=== PATIENT | male | born 1955 | race Caucasian/White ===

== ENCOUNTER 2020-01-13 08:43 | Outpatient (CLI) | payer MEDICARE, OTHER ==
--- NOTE | 2020-01-13 14:19 | CARDIAC PROCEDURE NOTE ---
DATE OF SERVICE: 01/13/2020 Physician: Tina Holguin MD, [facility] INDICATION: Dyspnea, chest pain. CARDIAC RISK FACTORS: Ex-smoker, hypertension. DESCRIPTION OF PROCEDURE: After signing informed consent, the patient underwent a Diaz-protocol treadmill stress test with nuclear myocardial perfusion imaging. RESTING HEART RATE: 60. PEAK HEART RATE: 124 (80% predicted maximum heart rate for age). RESTING BLOOD PRESSURE: 162/100. PEAK BLOOD PRESSURE: 204/118. The patient exercised for approximately 1.5 min, then the treadmill and EKG had lead errors and exercise was stopped, then was restarted after a rest period. The patient then exercised for 4 minutes on a manual protocol. He achieved a peak heart rate of 124 (80% PMHR) and 4.6 METS. The patient had resting chest pain, which he rated 6/10. This increased minimally, up to 7/10 with exercise. The patient developed shortness of breath quickly, after approximately 1 minute on the treadmill. Exercise was completed due to severe shortness of breath and he rated his perceived exertion at 18/20 on the Darrell scale. Oxygen saturation was 96% on room air at rest, which dropped to 88% on room air with exercise. In recovery, lung pozo were auscultated and there was wheezing in all lung pozo RESTING EKG: Normal sinus rhythm, left anterior fascicular block, poor R-wave progression, left atrial and right atrial enlargement. EKG AT PEAK: No new ST segment or T-wave changes developed to suggest ischemia at this level of stress achieved. SUMMARY: 1. Abnormal resting electrocardiogram. 2. Uncontrolled blood pressure at rest and with exercise (despite taking his HCTZ medication). 3. Atypical chest pain for angina; it was present at rest and minimally worsened with exercise. 4. Oxygen desaturation occurs with exercise on room air. 5. Very poor exercise tolerance. 6. Nuclear images showed: normal tracer distribution, normal LVEF of 65%, no evidence of scar or ischemia. IMPRESSION: 1. Poor exercise tolerance and oxygen desaturation develops. 2. Poor blood pressure control. 3. Normal stress test for any coronary disease. 4. After both sets of nuclear images were all completed, he complained of severe dyspnea. Lung pozo were auscultated and he was "tight" but had no wheezing or desaturation (O2 sat 97%). He was taken to the ER for further evaluation and management. RECOMMENDATIONS: 1. Adjust medications for blood pressure control. 2. PFTs and pulmonary evaluation advised. Consider bronchodilator treatment. cc: HUBER Telles TD: 01/13/2020 12:17 MTDD
--- NOTE | 2020-01-13 14:46 | Nuclear Medicine Report ---
PROCEDURE: Rest and exercise myocardial perfusion SPECT with gated imaging and ejection fraction INDICATIONS: CHEST PAIN. RADIOPHARMACEUTICAL: 8.7 mCi Tc-99m Myoview IV at rest and 26.3 mCi Tc-99m Myoview IV at peak exerci se. [id number] was performed. TECHNIQUE: Radiopharmaceutical was injected at peak stress test, and also at rest. SPECT images wer e obtained. SPECT myocardial perfusion images were displayed in short axis, horizontal long axis, an d vertical long axis views. Gated images were reviewed using [employer] software. COMPARISON: None available. FINDINGS: Raw data: There is good myocardial labeling by radiotracer. No significant motion artifacts. Left ventricle function: Gated images demonstrate normal left ventricle wall thickening. No segment al wall motion abnormality. No transient ischemic dilation. The left ventricle end-diastolic volume is normal. Left ventricle stress ejection fraction is 65%; normal values are above 45%. Myocardial perfusion: There is normal distribution of activity in the left and right ventricular dariel cardium. No fixed or reversible perfusion defects. IMPRESSION: 1. Normal myocardial perfusion images. No perfusion defect to suggest myocardial ischemia or infarcti on. 2. Normal left ventricular volume and systolic function. PQRS ATTESTATIONS: Measure 322 - Is this imaging test primarily performed on a low-risk surgery patient for preoperative evaluation within 30 days preceding their low-risk non-cardiac surgery? Low-risk surgery is defined as cardiac or myocardial infarction less than 1%, including (but not limited to) endoscopic pr ocedures, superficial procedures, cataract surgery, and excisional breast surgery: Answer: No Measure 323 - Is this imaging test performed primarily for the monitoring of an asymptomatic patient who had percutaneous coronary intervention on the visit date or within 2 years of the visit date? An swer: No Measure 324 - Is this imaging test performed primarily for the initial detection and risk assessment on an asymptomatic, low coronary heart disease patient? Low CHD risk definition = clinicians should consider the maximum number of available patient factors used to estimate risk based on [place] (A TP III criteria), typically age, gender, diabetes, smoking status, and use of blood pressure medicati on, and integrate age appropriate estimates for missing elements, such as LDL or standard blood press ure. Answer: No Reviewed by: Shawna Burkett MD on 01/13/2020 2:45 PM PDT Approved by: Shawna Burkett MD on 01/13/2020 2:45 PM PDT Station ID: [id number]
== END 2020-01-13 08:44 | disposition home or self-care (01) ==
LOC: DI 08:43
PROVIDERS: ATTEND Registered Nurse
DX: R06.00 Dyspnea, unspecified (principal); I20.9 Angina pectoris, unspecified; I10 Essential (primary) hypertension
CPT/HCPCS: 78452; 93017

== ENCOUNTER 2020-01-13 13:11 | Emergency (ER) | payer MEDICARE, OTHER ==
[2020-01-13] MEDS ORDERED: predniSONE 20 MG TABLET PO STA (14:11)
[2020-01-13] MEDS ORDERED: ALBUTEROL 1 PUFF INH STA (14:19)
--- NOTE | 2020-01-13 14:19 | ED Physician Documentation ---
PD HPI DYSPNEA - Stated complaint Stated Complaint: SOA - Chief complaint Chief Complaint: Resp - History obtained from History obtained from: Patient - History of Present Illness Timing - onset: How many months ago (6) Timing - onset during: Rest Timing - duration: Months (6) Timing - details: Gradual onset Pain level max: 3 Pain level now: 2 Improved by: Rest Worsened by: Exertion Associated symptoms: Wheezing. No: Fever, Cough, Hemoptysis, Chest pain / discomfort, Palpitations, Diaphoresis, Bilateral edema, Unilateral edema, Anxiety - Additional information Additional information: Patient is a 64-year-old male who presents to the emergency department with difficulty breathing since May. He states he got sick at that time, fevers and chills for approximately 10 days. Negative coronavirus test at that time. Since that time has had difficulty breathing. Worse with exertion, better with rest. He will need cardiac stress test today, no changes on the treadmill portion, but when he went to do the nuclear medicine portion, he states he felt more short of breath. He was sent here for evaluation. No recent surgeries. No leg swelling. Quit smoking 5 years ago. No fevers within the last 3 months. Has not been using inhalers. Does not take any medications at home other than a hypertension medication. Review of Systems Constitutional: denies: Fever, Chills Throat: denies: Sore throat Cardiac: reports: Chest pain / pressure (Chest tightness). denies: Palpitations Respiratory: reports: Dyspnea, Wheezing. denies: Cough, Hemoptysis GI: denies: Abdominal Pain, Nausea, Vomiting, Diarrhea Skin: denies: Rash Musculoskeletal: denies: Neck pain, Back pain Neurologic: denies: Numbness, Headache PD PAST MEDICAL HISTORY - Past Medical History Past Medical History: Yes Respiratory: Pneumonia - Present Medications Home Medications: Ambulatory Orders Medication Instructions Recorded Confirmed Albuterol Sulf [Ventolin Hfa 1 - 2 puffs INH Q4HR PRN #1 inhaler 01/13/20 Inhaler] predniSONE [Deltasone] 10 mg PO [id number] #42 tab 01/13/20 - Allergies Allergies/Adverse Reactions: Allergies Allergy/AdvReac Type Severity Reaction Status Date / Time No Known Drug Allergies Allergy Verified 01/13/20 13:44 - Social History Does the pt smoke?: No Smoking Status: Never smoker Does the pt drink ETOH?: Yes ETOH Use: Liquor Substance Use and Type: Marijuana PD ED PE NORMAL - Vitals Vital signs reviewed: Yes - General General: Alert and oriented X 3, No acute distress, Well developed/nourished - HEENT HEENT: Moist mucous membranes - Neck Neck: Supple, no meningeal sign - Cardiac Cardiac: RRR, Strong equal pulses - Respiratory Respiratory: No respiratory distress, Other (Wheezing bilaterally, right greater than left) - Abdomen Abdomen: Soft, Non tender, Non distended - Derm Derm: Warm and dry - Extremities Extremities: No edema, No calf tenderness / cord - Neuro Neuro: Alert and oriented X 3 - Psych Psych: Normal mood, Normal affect Results - Vitals Vitals: Vital Signs - 24 hr 01/13/20 01/13/20 01/13/20 13:44 14:04 14:45 Temperature 36.5 C Heart Rate 68 60 78 Respiratory 20 21 20 Rate Blood Pressure 170/100 H O2 Saturation 94 100 01/13/20 01/13/20 15:13 16:10 Temperature Heart Rate 62 65 Respiratory 17 24 Rate Blood Pressure 169/111 H O2 Saturation 100 97 Oxygen O2 Source Room air - EKG (time done) 1357 Rate: Rate (enter#) (55) Rhythm: NSR [place]: Normal Intervals: Normal ND, Wide QRS QRS: LVH Ischemia: Normal ST segments - Labs Labs: Laboratory Tests 01/13/20 01/13/20 01/13/20 14:40 14:40 14:40 WBC 5.4 RBC 4.50 L Hgb 15.9 Hct 43.9 MCV 97.6 H MCH 35.3 H MCHC 36.2 H RDW 12.0 Plt Count 167 MPV 9.1 Neut # (Auto) 2.8 Lymph # (Auto) 1.8 [place] # (Auto) 0.7 Eos # (Auto) 0.1 Baso # (Auto) 0.0 Absolute Nucleated RBC 0.00 Nucleated RBC % 0.0 Sodium 133 L Potassium 3.5 Chloride 99 L Carbon Dioxide 22 Anion Gap 12.0 BUN 24 H Creatinine 0.9 Estimated GFR (MDRD) 85 L Glucose 107 H Calcium 9.5 Total Bilirubin 1.2 H AST 26 ALT 27 Alkaline Phosphatase 48 Troponin I High Sens 3.5 Total Protein 7.2 Albumin 4.6 Globulin 2.6 Albumin/Globulin Ratio 1.8 Lipase 34 - Rads (name of study) Chest x-ray Radiology: EMP read indepedently (no acute abnormality.) PD MEDICAL DECISION MAKING - ED course Complexity details: reviewed results, re-evaluated patient, considered differential, d/w patient ED course: 64-year-old male with wheezing and difficulty breathing. Feels much better after albuterol treatment and steroids. No evidence of pneumonia. No significant lab abnormalities. His nuclear medicine stress test was normal today. We will place him on steroids and albuterol for home. Wheezing significantly decreased and he is breathing much easier. No hypoxia. No evidence of PE. Patient counseled regarding signs and symptoms for which I believe and urgent re-evaluation would be necessary. Patient with good understanding of and agreement to plan and is comfortable going home at this time This document was made in part using voice recognition software. While efforts are made to proofread this document, sound alike and grammatical errors may occur. Departure - Departure Disposition: Home, Self Care Clinical Impression: Wheezing Dyspnea Qualifiers: Dyspnea type: unspecified Qualified Code(s): R06.00 - Dyspnea, unspecified Condition: Good Instructions: ED Reactive Airway Disease Follow-Up: Connie Oviedo ARNP [Primary Care Provider] - Within 1 week Prescriptions: Albuterol Sulf [Ventolin Hfa Inhaler] 1 - 2 puffs INH Q4HR PRN #1 inhaler PRN Reason: Shortness Of Air/Wheezing predniSONE [Deltasone] 10 mg PO [id number] #42 tab Comments: Use the medications as prescribed. Follow-up with your doctor for further care. Return if you worsen. Discharge Date/Time: 01/13/20 16:10
[2020-01-13 14:50] LABS: BASOPHILS % (AUTO) 0.6 %; EOSINOPHILS # (AUTO) 0.1 10^3/uL (0.0-0.7); EOSINOPHILS % (AUTO) 1.7 %; HGB - HEMOGLOBIN 15.9 g/dL (14.0-18.0); LYMPHOCYTES # (AUTO) 1.8 10^3/uL (1.5-3.5); LYMPHOCYTES % (AUTO) 33.9 %; MEAN CORPUSCULAR HEMOGLOBIN 35.3 pg (27.0-31.0); MEAN CORPUSCULAR HGB CONC 36.2 g/dL (32.0-36.0); MEAN CORPUSCULAR VOLUME 97.6 fL (80.0-94.0); MEAN PLATELET VOLUME 9.1 fL (7.4-11.4); MONOCYTES # (AUTO) 0.7 10^3/uL (0.0-1.0); MONOCYTES % (AUTO) 12.2 %; NEUTROPHILS # (AUTO) 2.8 10^3/uL (1.5-6.6); NEUTROPHILS % (AUTO) 51.4 %; PLT - PLATELET COUNT 167 10^3/uL (130-450); WHITE BLOOD COUNT 5.4 x10^3/uL (4.8-10.8)
[2020-01-13 15:02] LABS: ALBUMIN 4.6 g/dL (3.2-5.5); ALBUMIN/GLOBULIN RATIO 1.8 (1.0-2.2); BILIRUBIN,TOTAL 1.2 mg/dL (0.2-1.0); CALCIUM 9.5 mg/dL (8.5-10.3); CREATININE 0.9 mg/dL (0.6-1.2); TOTAL PROTEIN 7.2 g/dL (6.7-8.2)
[2020-01-13 16:12] VITALS: BP 169/111
--- NOTE | 2020-01-14 05:21 | XRAY Report ---
PROCEDURE: Chest 1 View X-Ray INDICATIONS: Chest Pain TECHNIQUE: One view of the chest was acquired. COMPARISON: Prior 05/16/2015 chest plain films. FINDINGS: Surgical changes and devices: None. Lungs and pleura: No pleural effusions or pneumothorax. Lungs are clear. Mediastinum: Mediastinal contours appear normal. Heart size is normal. Bones and chest wall: No suspicious bony lesions. Overlying soft tissues appear unremarkable. IMPRESSION: Normal for age, source of current symptoms is not seen. Reviewed by: Austin Estes MD on 01/13/2020 2:47 PM PDT Approved by: Austin Estes MD on 01/13/2020 2:47 PM PDT Station ID: [id number]
== END 2020-01-13 16:10 | disposition home or self-care (01) ==
LOC: ED 13:11
DX: R06.2 Wheezing (principal); R06.00 Dyspnea, unspecified; Z87.891 Personal history of nicotine dependence; I10 Essential (primary) hypertension; I20.9 Angina pectoris, unspecified
CPT/HCPCS: 36415; 71045; 78452; 80053; 83690; 84484; 85025; 93005; 93017; 94640; 99284; A9500; J7512